=== PATIENT | female | born 1990 | race Caucasian/White ===

== ENCOUNTER 2019-05-13 09:13 | Observation (INO) | payer BC ==
[~2019-05-13 09:13] MED LIST: LABETALOL 200 MG PO
[2019-05-13] MEDS ORDERED: Betamethasone Acetate/Betamethasone Sod Phosphate 30 MG/5 ML MDV IM ONE (10:44)
[2019-05-13] MEDS ORDERED: Acetaminophen 325 MG Tab PO PRN (11:04)
--- NOTE | 2019-05-13 21:48 | HP ---
CHIEF COMPLAINT: Elevated blood pressures with dizziness, lightheadedness, and visual disturbance. 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 She also felt like she had the spins as though she had been drinking, but has not been using any alcohol. She also reported a headache last night. It is less intense today, but still there. She is also noticing some dizzy, lightheaded sensations as well as seeing some black dots. The school EMT was called and reports that her blood pressure was 190/120; however, that was a small cuff, so she was brought to the hospital for further evaluation and observation. Upon arrival, blood pressure was 179/84, but spontaneously came down to 142/65. Followups are 128/42, 156/80, 138/72, and 155/67. She reports good movement, no vaginal bleeding or leakage of fluid, no right upper quadrant pain, no edema, and no others symptoms significant for preeclampsia. OBSTETRICAL HISTORY: First was dated by a 7-week ultrasound, which was 1 week different than her last menstrual period. Blood type was O positive, antibody screen negative, rubella non-immune, syphilis serology negative, hepatitis B negative, HIV negative, and gonorrhea and chlamydia negative. TSH has been abnormal, and she is being appropriately treated with supplementation. Wet prep was negative. GBS has not yet been collected. Glucose tolerance test was normal. PAST MEDICAL HISTORY: Hypertension and she was able to stop her blood pressure pills after a 150-pound weight loss. She has hypothyroidism; morbid obesity; polycystic ovarian syndrome, previously treated with metformin; and a history of anovulation. PAST SURGICAL HISTORY: Adenoidectomy at age 10, humerus fracture repair with marina placement on the right side in 11/2016, and bilateral tympanostomy tubes at age 10. FAMILY HISTORY: Mother with thyroid disease. Father with high cholesterol and hypertension. Maternal grandmother and maternal grandfather both with diabetes. SOCIAL HISTORY: The patient is , has never smoked, and does not use any alcohol or drugs. 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 MEDICATIONS: Levothyroxine 50 mcg p.o. daily, labetalol 200 mg p.o. b.i.d., aspirin 81 mg daily, and vitamin 1 daily. ALLERGIES: Penicillin. She is uncertain of the allergy, but reports it was a rash as a child. REVIEW OF SYSTEMS: As per the history of present illness. The patient also denies any nausea or vomiting, no diarrhea or constipation, reports that work has been stressful, but otherwise, no specific reason for change in acute blood pressure differences. PHYSICAL EXAMINATION: Vital Signs: Blood pressures are as reported above. She is afebrile. Respiratory rate of 18. Head: Normocephalic and atraumatic. Heart: Regular without murmur. Lungs: Clear to auscultation bilaterally. Abdomen: Gravid. Soft and nontender. Positive bowel sounds throughout. Baby is vertex on ultrasound with anterior placenta noted. NST shows a baseline heart rate of 130 beats per minute with moderate jjhg-vp-pule variability. Accelerations are noted. [place] shows no contractile activity. Genitourinary: Deferred at this time. Extremities: No edema, erythema, or tenderness. Skin: Warm, dry, and appropriate for race. Neurological: No focal defects, no clonus, and reflexes are 2+ and equal. LABORATORY: [facility] labs are essentially negative. Urine dipstick is negative for protein with a protein-creatinine ratio of 0.12, glucose negative, ketones negative, and small leukocyte esterase. Hemoglobin 13.1 and platelets 260. AST, ALT, lactic acid, LDH, BUN, and creatinine are all normal. Later, after the patient had been admitted to the hospital, the 24-hour urine that she brought to the clinic in the morning came back at a value of 0.37 g/dL. Biophysical profile: KULDEEP of 16.8 and score of 10/10. ASSESSMENT: 1. Gestational hypertension, superimposed on chronic hypertension. 2. Concern for development of preeclampsia. 3. Morbid obesity. 4. Hypothyroidism. 5. Rubella nonimmune. 6. History of polycystic ovarian syndrome. 7. Bilateral carpal tunnel symptoms of . 8. Group B streptococcus status unknown. PLAN: The case was initially discussed with Dr. Drummond; however, this was prior to having the 24-hour urine value, and we agreed that I could keep her here in the hospital and monitor her closely with close tracking of her symptoms as well as blood pressures. Should things change and worsen at any point in time, he would be happy to accept her in transfer. I discussed with him that at her early gestational age, I was also going to give 2 doses of betamethasone, continue with her oral labetalol and aspirin at this time, and hope that we can keep her until 37 weeks' gestation, at which time, delivery would become necessary. In light of the questionable 24-hour protein value as compared to the protein-creatinine ratio on urine dipstick, I am collecting another 24-hour protein as we monitor her overnight with initial blood pressures every hour. We could decrease the frequency when it comes to bedtime. The patient at the best will be discharged home on bedrest with plans for induction at 37 weeks' gestation. If her blood pressures continue to be extremely labile or she has increased symptoms of preeclampsia or has increase in protein in the urine, I will be contacting [facility] back for delivery and anticipating that as a potential outcome. The patient's questions have been answered. Her dcdrvn-gp-oap was with her at the hospital, and I anticipate visiting with her again or coming in and seeing her during the night if necessary. [facility] /[id number] MTDD
[2019-05-14] MEDS ORDERED: PRENATAL MULTI PO (09:00)
[2019-05-14] MEDS ORDERED: LABETALOL 200 MG PO ×3 (09:00→09:48)
[2019-05-14] MEDS ORDERED: LEVOTHYROXINE 50 MCG PO SCH ×7 (09:00→21:00)
[2019-05-14] MEDS ORDERED: DHA PO (09:00)
[2019-05-14] MEDS ORDERED: Prenatal Multivitamin with Calcium/Folic Acid/Iron Tab PO SCH (09:00)
[2019-05-14] MEDS ORDERED: Labetalol 100 MG Tab PO SCH (09:00)
--- NOTE | 2019-05-14 11:07 | PN ---
DATE: 05/14/2019 SUBJECTIVE: Hospital day #2. The patient admitted overnight for close monitoring of blood pressures and repeat of lab work today for gestational hypertension, superimposed on chronic hypertension for rule out of preeclampsia. The patient has done well through the night. Any time that she sits up straight, is doing paperwork, or if she is up and ambulating, her blood pressures will spike. If she remains on bed rest with BRP, her blood pressures will be fine. She denies any problems with headaches, blurry vision, chest pain, shortness of breath, nausea, vomiting, or change in her swelling, and understands the risks of delivery versus risk of preeclampsia or even just severe hypertension with potential for complications such as stroke, placental abruption, liver failure, pulmonary edema, and even . No other acute concerns or questions today. OBJECTIVE: Vital Signs: Temperature is 97.8; pulse generally in the 90s, currently at 104; blood pressure spike overnight was 156/63, otherwise 120/58, 124/53, 131/55, and 133/54. Yesterday's pressure was generally anywhere from 111/54 with 1 spike of 186/92 at noon, that quickly resolved. Heart: Regular without murmur. Lungs: Clear to auscultation bilaterally. Abdomen: Soft and nontender. Bowel sounds positive. heart tones currently with a baseline of about 130 beats per minute. [place] not showing any contractions at this time. Extremities: Trace edema. No erythema or tenderness. Neurological: No clonus. 2+ deep tendon reflexes are equal. LABORATORY DATA: Stable hemoglobin of 12.2, platelets of 280. BUN 6, creatinine 0.5. Uric acid slightly increased to 4.6 from 4.0. AST 18, ALT 18. Lactate dehydrogenase 141. Urinalysis dipstick remains negative for protein today as it was yesterday and protein creatinine ratio remains at 0.12 as it was yesterday. 24-hour protein at the clinic yesterday was 0.37, however, incomplete sample noted and the patient's body size versus lean body mass I feel may be obscuring this. The protein creatinine ratio a week ago in clinic was 0.1, so essentially is unchanged at this time. ASSESSMENT: 1. Gestational hypertension, superimposed on chronic hypertension, evaluating for preeclampsia. 2. Hypothyroidism. 3. Morbid obesity. 4. Excessive weight gain of . 5. History of polycystic ovarian syndrome. 6. 1, para 0, currently at 35-2/7 weeks' gestation. PLAN: Continue bed rest and close observation of her blood pressures today in hospital. Probably go back to q.2 hour blood pressure checks at this time and await today's 24-hour urine protein collection and further assessment from there. She will also get her 2nd dose of betamethasone. I have had a lengthy discussion with her regarding risks and benefits of delivery versus continued close monitoring, and I will be in touch with WINDOW [employer]ESSER likely this afternoon for additional assistance, especially if transfer for delivery is appropriate. The patient's questions have been answered. [facility] /[id number] MTDMaryam
[2019-05-14] MEDS ORDERED: Betamethasone Acetate/Betamethasone Sod Phosphate 30 MG/5 ML MDV IM ONE (11:40)
--- NOTE | 2019-05-15 04:24 | OBOUT ---
DATE: 05/14/2019 INDICATION: Noykb-nh-bjamykk hypertension in . REPORT: Baseline heart rate 130 beats per minute. Moderate tdpe-pd-sbga variability. Accelerations noted. [place] shows some mild uterine irritability. No contractions. INTERPRETATION: Category 1 reassuring and reactive NST. [facility] /[id number]
--- NOTE | 2019-05-15 04:31 | OBOUT ---
DATE: 05/13/2019 START TIME FOR NST: 9:18 a.m. INDICATION FOR NST: Elevated blood pressures, fffgu-lk-wwcedfg hypertension. REPORT: Baseline heart rate 130 beats per minute. Moderate zjdd-lm-domf variability. Accelerations noted. No decelerations. [place] shows no contractions. INTERPRETATION: Category 1 reassuring and reactive NST. [facility] /[id number]
--- NOTE | 2019-05-15 04:31 | OBOUT ---
DATE: 05/13/2019 Start time for NST is 9:10 p.m. INDICATION FOR NST: Acute on chronic hypertension in . REPORT: Baseline heart rate 120 beats per minute. Moderate uswu-ck-bekc variability. Accelerations noted. No decelerations. [place] shows no contractions. INTERPRETATION: Category 1 reassuring and reactive NST. [facility] /[id number] [facility]ENTER[facility]am
--- NOTE | 2019-05-19 14:12 | DISCH ---
ADMITTING DIAGNOSES: 1. Chronic hypertension. 2. Superimposed gestational hypertension. 3. Morbid obesity. 4. High-risk . 5. 1, para 0. 6. Hypothyroidism. 7. Rubella nonimmune. 8. History of polycystic ovarian syndrome. 9. Bilateral carpal tunnel symptoms of . 10.Concern for development of preeclampsia. 11.Group B strep status unknown. BRIEF HISTORY: This 29-year-old female with the above-listed diagnoses was brought into the hospital for evaluation after having some preeclamptic symptoms while at school and elevated blood pressures taken by the EMT at the school as well as on admission to the hospital. When on bed rest, her blood pressures were well controlled. So, we wanted to observe her further for evaluation and to rule out preeclampsia. While in the hospital, she had full evaluation. NSTs were reactive and reassuring, category 1, throughout her stay. As long as she was resting, her blood pressures were usually in the 120s and 130s over 60s and 70s. She would spike into the 150s on occasion, usually only if she was sitting up. We had increased her labetalol to 200 mg 3 times a day. Repeated a 24-hour urine protein which was 296. Her protein-creatinine ratio and urine dipsticks remained stable at 0.1 and negative respectively. Consultation was made via telephone with [employer] MARKETING CONSULTANT reviewing the data, and we agreed that she could go home on continued bedrest with plan for delivery at 37 weeks gestation, sooner if she developed overt preeclampsia. She will continue to follow up with twice weekly NSTs and once weekly biophysical profiles with additional testing or interventions as needed. DISPOSITION: Home. INSTRUCTIONS: The patient is to remain on bed rest with bathroom privileges. She may get up to make herself a very simple sandwich, but nothing complicated. 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 She will continue her labetalol 200 mg 3 times a day, aspirin 81 mg daily, and levothyroxine 50 mcg daily. FOLLOWUP: She will be seen in the office next week with repeat of her [facility] labs, NST, and biophysical profile. The patient is aware to call or come into the clinic or Labor and Delivery if she has any symptoms of preeclampsia, starting to get elevated blood pressures at home, or has any other concerns. DISCHARGE CONDITION: Stable and good. PHYSICAL EXAMINATION: Vital Signs: Temperature is 98.6, pulse 104, blood pressure 136/56, respiratory rate of 16, and O2 saturation is 97% on room air. Heart: Regular, without murmur. Lungs: Clear to auscultation bilaterally. Abdomen: Soft and nontender. Gravid. vertex presenting. Nonstress test, category 1. Extremities: Trace edema. No erythema or tenderness noted. LABORATORY DATA: Labs as listed above. [facility] labs otherwise negative. [facility] /[id number]
== END 2019-05-14 19:00 | disposition home or self-care (01) ==
LOC: DL.OBCHECK 09:13 → DL.OB 11:04
PROVIDERS: ADMIT Family Medicine; ATTEND Family Medicine
DX: O13.3 Gestational [pregnancy-induced] hypertension without significant proteinuria, third trimester (principal); O99.213 Obesity complicating pregnancy, third trimester; O99.89 Other specified diseases and conditions complicating pregnancy, childbirth and the puerperium; E03.9 Hypothyroidism, unspecified; G56.03 Carpal tunnel syndrome, bilateral upper limbs; E66.01 Morbid (severe) obesity due to excess calories; Z3A.35 35 weeks gestation of pregnancy; Z79.899 Other long term (current) drug therapy; Z79.82 Long term (current) use of aspirin; Z88.0 Allergy status to penicillin; Z87.42 Personal history of other diseases of the female genital tract; Z68.43 Body mass index [BMI] 50.0-59.9, adult
CPT/HCPCS: 36415; 59025; 76819; 81003; 82565; 82570; 83615; 84156; 84450; 84460; 84520; 84550; 85027; 96372; A9270-GY; G0378; J0702

== ENCOUNTER 2020-03-31 01:01 | Emergency (ER) | payer BC ==
[2020-03-31] MEDS ORDERED: Acetaminophen/HYDROcodone 325-10 MG Tab PO ONE (01:02)
[2020-03-31] MEDS ORDERED: Ondansetron 4 MG Tab.DIS PO ONE (01:02)
[2020-03-31] MEDS ORDERED: Ketorolac 30 MG/ML SDV IVPUSH ONE (01:46)
[2020-03-31] MEDS ORDERED: Acetaminophen/oxyCODONE 325-5 MG Tab PO ONE (01:46)
--- NOTE | 2020-03-31 01:57 | EDM.PDOC ---
ED HPI GENERAL MEDICAL PROBLEM - General Chief Complaint: Back Pain or Injury Stated Complaint: EXTREME BACK PAIN Time Seen by Provider: 03/31/20 01:20 Source of Information: Reports: Patient History Limitations: Reports: No Limitations - History of Present Illness INITIAL COMMENTS - FREE TEXT/NARRATIVE: c/o severe right sided low back pain after chiro appointment today. Has had similar event in past. No numbness or tingling. No weakness. Pain low back no radiation down leg. Worse with movement Lower Back Pain Score (Numeric/FACES): 10 - Related Data Allergies Allergy/AdvReac Type Severity Reaction Status Date / Time Penicillins Allergy Unknown Rash Verified 05/21/19 13:08 Home Meds: Home Meds Aspirin [Adult Low Dose Aspirin EC] 81 mg PO DAILY 03/16/19 [History] Labetalol HCl [Labetalol] 200 mg PO Q8H 03/16/19 [History] Levothyroxine [Synthroid] 50 mcg PO ACBREAKFAST 03/16/19 [History] Pnv No.95/Ferrous Fum/Folic AC [ Caplet] 1 tab PO DAILY 03/16/19 [History] Past Medical History Cardiovascular History: Reports: Hypertension POEM WRITER History: Reports: Endocrine/Metabolic History: Reports: Hypothyroidism - Past Surgical History HEENT Surgical History: Reports: Adenoidectomy, Tonsillectomy Social & Family History - Family History Family Medical History: Noncontributory - Tobacco Use Smoking Status *Q: Never Smoker Second Hand Smoke Exposure: No - Caffeine Use Caffeine Use: Reports: Coffee - Recreational Drug Use Recreational Drug Use: No ED ROS GENERAL - Review of Systems Review Of Systems: Comprehensive ROS is negative, except as noted in HPI. ED EXAM,LOWER BACK PAIN/INJURY - Physical Exam Exam: See Below Exam Limited By: No Limitations General Appearance: Alert, Moderate Distress (with movement), Obese Eye Exam: Bilateral Eye: EOMI Ears: Normal External Exam, Hearing Grossly Normal Nose: Normal Inspection Throat/Mouth: Normal Inspection Head: Atraumatic, Normocephalic Neck: Normal Inspection Respiratory/Chest: No Respiratory Distress, Lungs Clear, Normal Breath Sounds Cardiovascular: Normal Peripheral Pulses, Regular Rate, Rhythm, No Edema GI/Abdominal: Normal Bowel Sounds, Soft Back Exam: Decreased Range of Motion, Paraspinal Tenderness (right) Extremities: Normal Inspection Neurological: Alert, Normal Mood/Affect, Normal Plantar Flexion, Normal Reflexes, Oriented x 3, Straight Leg Raise (R) Psychiatric: Normal Affect Skin Exam: Warm, Dry, Intact, Normal Color, No Rash Course - Vital Signs Last Recorded V/S: Last Vital Signs Temp 97.8 F 03/31/20 01:19 Pulse 110 H 03/31/20 01:19 Resp 19 03/31/20 01:19 BP 157/99 H 03/31/20 01:19 Pulse Ox 99 03/31/20 01:19 - Orders/Labs/Meds Meds: Medications Discontinued Medications Generic Name Dose Route Start Last Admin Trade Name Miranda PRN Reason Stop Dose Admin Hydrocodone Bitart/Acetaminophen Confirm 03/31/20 02:13 [place] 325-10 Mg Administered 03/31/20 02:14 Dose 1 tab .ROUTE .STK-MED ONE Ketorolac Tromethamine 30 mg 03/31/20 01:46 03/31/20 02:06 Toradol IVPUSH 03/31/20 01:47 30 mg ONETIME ONE Administration Ondansetron HCl Confirm 03/31/20 02:14 Zofran Odt Administered 03/31/20 02:15 Dose 4 mg .ROUTE .STK-MED ONE Orphenadrine Citrate 60 mg 03/31/20 01:46 03/31/20 02:08 Norflex IM 03/31/20 01:47 60 mg ONETIME ONE Administration Oxycodone/Acetaminophen 1 tab 03/31/20 01:46 03/31/20 01:59 Percocet 325-5 Mg PO 03/31/20 01:47 1 tab ONETIME ONE Administration Departure - Departure Time of Disposition: 02:06 Disposition: Home, Self-Care 01 Condition: Good Clinical Impression: Spasm of back muscles - Discharge Information *PRESCRIPTION DRUG MONITORING PROGRAM REVIEWED*: No *COPY OF PRESCRIPTION DRUG MONITORING REPORT IN PATIENT BONNIE: No Instructions: Muscle Cramps and Spasms, Gqba-an-Nujt, Back Injury Prevention, Fatu-sh-Ttvn Forms: ED Department Discharge Additional Instructions: rest alternate heat and ice to low back flexeril 10mg one every 8 hours as needed for spasm ibuprofen 600mgevery 6 hours, alternate with hydrocodone 10/ 325 follow up with primary care if not improving Sepsis Event Note (ED) - Evaluation Sepsis Screening Result: No Definite Risk - Focused Exam Vital Signs: Vital Signs Temp Pulse Resp BP Pulse Ox 03/31/20 01:19 97.8 F 110 H 19 157/99 H 99
[2020-03-31] MEDS ORDERED: Acetaminophen/HYDROcodone 325-10 MG Tab ONE (02:13)
[2020-03-31] MEDS ORDERED: Ondansetron 4 MG Tab.DIS ONE (02:14)
== END 2020-03-31 02:22 | disposition home or self-care (01) ==
LOC: DL.ED 01:01
DX: M62.830 Muscle spasm of back (principal); E03.9 Hypothyroidism, unspecified; Z88.0 Allergy status to penicillin; Z79.82 Long term (current) use of aspirin; Z79.899 Other long term (current) drug therapy
CPT/HCPCS: 96372; 96374; 99283; 99283-25; A9270-GY; J1885; J2360

== ENCOUNTER 2022-07-05 17:19 | Emergency (ER) | payer SELFPAY ==
[2022-07-05] MEDS ORDERED: Acetaminophen/HYDROcodone 325-5 MG Tab PO ONE (17:41)
== END 2022-07-05 18:45 | disposition home or self-care (01) ==
LOC: DL.ED 17:19 → MERGE 17:19 → DL.ED 18:45
DX: R07.89 Other chest pain (principal); R05.1 Acute cough; I10 Essential (primary) hypertension; E66.9 Obesity, unspecified; Z68.43 Body mass index [BMI] 50.0-59.9, adult; Z88.0 Allergy status to penicillin; Z79.82 Long term (current) use of aspirin; Z79.899 Other long term (current) drug therapy; Z79.84 Long term (current) use of oral hypoglycemic drugs
CPT/HCPCS: 99284; A9270